=== PATIENT | female | born 1935 | race Caucasian/White ===

== ENCOUNTER 2017-03-20 17:31 | Emergency (ER) | payer MEDICARE, MEDICAID ==
[~2017-03-20] VITALS: Ht 165.1 cm; Wt 86.0 kg
[~2017-03-20 17:31] MED LIST: ALEN1TAB48 PO; APIX5TAB PO; CALC1TAB87 PO; ELASMIS; GLIP5TAB8 PO; HUMALOG SQ; LANTINJ SQ; METF500T PO; METO50TA PO; NITR0.4S SL; OMEP20TA PO
[2017-03-20 17:40] VITALS: BP 184/86; PULSE 80; RESP 20; TEMP 98.5; O2SAT 99
[2017-03-20] MEDS ORDERED: HUMALOG SQ (17:56)
[2017-03-20] MEDS ORDERED: LANTINJ SQ (17:56)
[2017-03-20] MEDS ORDERED: GLIP10TA6 PO (17:56)
[2017-03-20] MEDS ORDERED: CLIN1CAP6 PO (18:36)
--- NOTE | 2017-03-20 18:37 | PD ---
HPI Chief Complaint: Bite or Sting Time Seen by Provider: 18:05 Travel History International Travel<30 days: No Contact w/Intl Traveler<30days: No Traveled to known affect area: No History of Present Illness HPI 81-year-old female presents emergency department for evaluation of dog bite to the left second digit. She reports she startled her sleeping dog and when he awoke he nipped puncturing her left second digit. She has a small puncture wound to that toe. There is no active bleeding. Injury occurred at 9 AM. She reports mild pain at the site. No aggravating or alleviating factors. PFSH Past Medical History Hx Anticoagulant Therapy: Yes Arthritis: Yes Heart Rhythm Problems: Yes Cancer: Yes (LEFT KIDNEY) Cardiac Catheterization: Yes (X 2 STENTS) Cardiovascular Problems: Yes High Cholesterol: Yes Chest Pain: Yes Diabetes: Yes Patient Takes Glucophage: Yes Diminished Hearing: No Gastrointestinal Disorders: Yes GERD: Yes Glaucoma: No Genitourinary: Yes Hepatitis: No Hiatal Hernia: Yes (GERD) Hypertension: Yes Musculoskeletal: Yes Reproductive: Yes Respiratory: Yes Immunizations Current: No Myocardial Infarction: Yes Renal Failure: Yes Thyroid Disease: No Menopausal: Yes : 5 Para: 4 Miscarriage: 1 Past Surgical History Abdominal Surgery: Yes (CHOLECYSTECTOMY) Cholecystectomy: Yes Coronary Stent: Yes (X2 STENTS) Endocrine Surgery: Yes (L KIDNEY [id number] KIDNEY IN "3RD STAGE") Eye Surgery: Yes (DAWIT. CATARACT EXTRACT) Genitourinary Surgery: Yes (LEFT NEPHRECTOMY, BLADDER SUSP. X2) Gynecologic Surgery: Yes (TY) Hysterectomy: Yes Joint Replacement: Yes (DAWIT KNEE) Oral Surgery: Yes (T & A) Pacemaker: No Tonsillectomy: Yes Other Surgery: Yes Social History Alcohol Use: No Tobacco Use: No (QUIT 25 YRS AGO.) Substance Use: No Allergies-Medications (Allergen,Severity, Reaction): Coded Allergies: Cipro (Verified Allergy, Severe, SICK, 03/20/17) Contrast Media (Verified Allergy, Severe, Urinary Freq (Inc/Dec), 03/20/17) Nimbex (Verified Allergy, Severe, Anaphylaxis, 03/20/17) Nonsteroidal Anti-Inflammatory Agts (Unverified Allergy, Severe, HAS RENAL FAILURE, 03/20/17) Penicillin (Verified Allergy, Severe, Anaphylaxis, 03/20/17) HMG-CoA Reductase Inhibitors (Verified Allergy, Intermediate, 03/20/17) Cramps Zofran (Verified Allergy, Mild, Rash, 03/20/17) Uncoded Allergies: mimbrx (Adverse Reaction, Severe, Anaphylaxis, 11/29/16) Reported Meds & Prescriptions Reported Meds & Active Scripts Active Reported Lantus Solostar Pen Inj (Insulin Glargine) 300 Unit/3 Ml Pen 50 Units SQ HS Humalog Inj (Insulin Human Lispro) 1,000 Unit/10 Ml Vial 14 Units SQ TIDAC Glipizide 10 Mg Tab 10 Mg PO BIDAC Take 30 minutes before a meal Calcium 600 with Vitamin D (Calcium Carbonate-Cholecalciferol) 600-400 mg-Unit Tab 1 Tab PO DAILY Eliquis (Apixaban) 5 Mg Tab 5 Mg PO BID Omeprazole 20 Mg Tab 20 Mg PO BID Metformin (Metformin HCl) 500 Mg Tab 1,000 Mg PO BIDPC With meals Metoprolol Tartrate 50 Mg Tab 50 Mg PO BID Review of Systems Except as stated in HPI: all other systems reviewed are Neg General / Constitutional: No: Fever Eyes: No: Visual changes HENT: No: Headaches Cardiovascular: No: Chest Pain or Discomfort Respiratory: No: Shortness of Breath Gastrointestinal: No: Abdominal Pain Physical Exam Narrative GENERAL: Well-nourished, well-developed patient. SKIN: Focused skin assessment warm/dry. 0.5 cm puncture wound to the plantar aspect of left second digit. No active bleeding. Joint penetration unsuspected. HEAD: Normocephalic. EYES: No scleral icterus. No injection or drainage. NECK: Supple, trachea midline. No JVD or lymphadenopathy. CARDIOVASCULAR: Regular rate and rhythm without murmurs, gallops, or rubs. RESPIRATORY: Breath sounds equal bilaterally. No accessory muscle use. GASTROINTESTINAL: Abdomen soft, non-tender, nondistended. MUSCULOSKELETAL: No cyanosis, or edema. Data Data Last Documented VS Vital Signs Date Time Temp Pulse Resp B/P Pulse Ox O2 Delivery O2 Flow Rate FiO2 03/20/17 17:40 98.5 80 20 184/86 99 MDM Medical Decision Making Medical Screen Exam Complete: Yes Emergency Medical Condition: Yes Differential Diagnosis Dog bite, puncture wound, total laceration Narrative Course 81-year-old female with small puncture wound to left second toe caused by dogbite. Dog's immunizations are up-to-date. The puncture wound is no active bleeding and joint penetration is not suspected. The area was extensively cleansed and dressed. Patient we put on antibiotics. Her tetanus status is up- to-date. Advised to follow with her primary care doctor. Return precautions discussed. Patient verbalizes understanding and agrees to plan Diagnosis Primary Impression: Dog bite Qualified Code: W54.0XXA - Dog bite, initial encounter Additional Impression: Puncture wound Referrals: Primary Care Physician Additional Instructions: Cleansed the area daily with soap and water. Covered the area with antibiotic ointment and a dressing. Take the antibiotics as prescribed. Follow-up with her primary care doctor for recheck. Return to the emergency department if he developed new or worsening symptoms. Scripts Clindamycin 300 Mg [id number] Mg PO TID #21 CAP Prov:Ayanna Graham 03/20/17 Disposition: 01 DISCHARGE HOME Condition: Stable Ayanna Graham Mar 20, 2017 18:37
[2017-03-31] MEDS ORDERED: OMEP20TA PO (11:18)
[2017-03-31] MEDS ORDERED: CLOT2CRE VAGINAL ×2 (11:29→11:30)
[2017-05-19] MEDS ORDERED: LIFI1DRO EACH EYE ×3 (10:52→11:16)
[2017-05-19] MEDS ORDERED: AZIT250T3 PO ×2 (11:14→11:16)
[2017-05-19] MEDS ORDERED: BENZ100 PO ×2 (11:14→11:16)
[2017-05-27] MEDS ORDERED: AZIT250T3 PO (11:04)
== END 2017-03-20 18:57 | disposition home or self-care (01) ==
LOC: PHED 17:31
DX: S61.231A Puncture wound without foreign body of left index finger without damage to nail, initial encounter (principal); Y92.009 Unspecified place in unspecified non-institutional (private) residence as the place of occurrence of the external cause; Y93.89 Activity, other specified; W54.0XXA Bitten by dog, initial encounter; I12.9 Hypertensive chronic kidney disease with stage 1 through stage 4 chronic kidney disease, or unspecified chronic kidney disease; E11.9 Type 2 diabetes mellitus without complications; N18.9 Chronic kidney disease, unspecified; E78.00 Pure hypercholesterolemia, unspecified; K21.9 Gastro-esophageal reflux disease without esophagitis; I25.2 Old myocardial infarction; Z90.5 Acquired absence of kidney; Z96.653 Presence of artificial knee joint, bilateral; Z79.4 Long term (current) use of insulin; Z79.01 Long term (current) use of anticoagulants
CPT/HCPCS: 99283

== ENCOUNTER → 2017-06-23 | Outpatient (CLI) | payer MEDICARE ==
[~2017-06-23] MED LIST changes: +ALBUAER3 INH; -ALEN1TAB48 PO; +BENZ100 PO; +CLOT2CRE VAGINAL; -ELASMIS; +GLIP10TA6 PO; -GLIP5TAB8 PO; +LIFI1DRO EACH EYE; -NITR0.4S SL; -OMEP20TA PO; +OMEP20TA93 PO
== END ==
LOC: HRSP 11:57
PROVIDERS: ATTEND Family Medicine
DX: J44.9 Chronic obstructive pulmonary disease, unspecified (principal)
CPT/HCPCS: 94060

== ENCOUNTER 2018-01-02 23:04 | Emergency (ER) | payer MEDICARE, OTHER ==
[~2018-01-02] VITALS: Ht 165.1 cm; Wt 88.3 kg
[~2018-01-02 23:04] MED LIST changes: -ALBUAER3 INH; -CLOT2CRE VAGINAL; +SALM50I INH
[2018-01-02 23:08] VITALS: BP 155/78; PULSE 89; RESP 18; TEMP 97.8; O2SAT 97
--- NOTE | 2018-01-02 23:44 | PD ---
HPI Chief Complaint: OD/ Ingestion Time Seen by Provider: 23:37 Travel History International Travel<30 days: No Contact w/Intl Traveler<30days: No History of Present Illness HPI Patient presents to the emergency department complaining of taking too much of her medication this evening. She thought she had not taken it but she realized she had when she checked her pill bottle. States that this happened approximately 1 hour ago. She took one extra of the following medications: Eliquis, metoprolol, metformin, glipizide. She normally takes metoprolol 50mg BID, metformin 1000mg BID after meals, eliquis 5mg BID, and glipizide 10mg BID before meals. She denies chest pain, hemoptysis, hematuria, but reports chronic dyspnea and chronic dizziness and chronic lightheadedness. No acute complaints. PFSH Past Medical History Hx Anticoagulant Therapy: Yes Arthritis: Yes Heart Rhythm Problems: Yes Cancer: Yes (LEFT KIDNEY) Cardiac Catheterization: Yes (X 2 STENTS) Cardiovascular Problems: Yes High Cholesterol: Yes Chest Pain: Yes Diabetes: Yes Diminished Hearing: No Gastrointestinal Disorders: Yes GERD: Yes Glaucoma: No Genitourinary: Yes Hepatitis: No Hiatal Hernia: Yes (GERD) Hypertension: Yes Musculoskeletal: Yes Reproductive: Yes Respiratory: Yes Immunizations Current: No Myocardial Infarction: Yes Renal Failure: Yes Thyroid Disease: No Menopausal: Yes : 5 Para: 4 Miscarriage: 1 Past Surgical History Abdominal Surgery: Yes (CHOLECYSTECTOMY) Cholecystectomy: Yes Coronary Stent: Yes (X2 STENTS) Endocrine Surgery: Yes (L KIDNEY [id number] KIDNEY IN "3RD STAGE") Eye Surgery: Yes (DAWIT. CATARACT EXTRACT) Genitourinary Surgery: Yes (LEFT NEPHRECTOMY, BLADDER SUSP. X2) Gynecologic Surgery: Yes (TY) Hysterectomy: Yes Joint Replacement: Yes (DAWIT KNEE) Oral Surgery: Yes (T & A) Pacemaker: No Tonsillectomy: Yes Other Surgery: Yes Social History Alcohol Use: No Tobacco Use: No (QUIT 25 YRS AGO.) Substance Use: No Allergies-Medications (Allergen,Severity, Reaction): Coded Allergies: ciprofloxacin (Verified Allergy, Severe, SICK, 01/03/18) cisatracurium (Verified Allergy, Severe, Anaphylaxis, 01/03/18) diatrizoate meglumine (Verified Allergy, Severe, Urinary Freq (Inc/Dec), ) diclofenac (Verified Allergy, Severe, HAS RENAL FAILURE, 01/03/18) etodolac (Verified Allergy, Severe, HAS RENAL FAILURE, 01/03/18) flurbiprofen (Verified Allergy, Severe, HAS RENAL FAILURE, 01/03/18) gadobenic acid (Verified Allergy, Severe, Urinary Freq (Inc/Dec), 01/03/18) gadodiamide (Verified Allergy, Severe, Urinary Freq (Inc/Dec), 01/03/18) gadoteridol (Verified Allergy, Severe, Urinary Freq (Inc/Dec), 01/03/18) ibuprofen (Verified Allergy, Severe, HAS RENAL FAILURE, 01/03/18) indomethacin (Verified Allergy, Severe, HAS RENAL FAILURE, 01/03/18) iodixanol (Verified Allergy, Severe, Urinary Freq (Inc/Dec), 01/03/18) iohexol (Verified Allergy, Severe, Urinary Freq (Inc/Dec), 01/03/18) ketoprofen (Verified Allergy, Severe, HAS RENAL FAILURE, 01/03/18) ketorolac (Verified Allergy, Severe, HAS RENAL FAILURE, 01/03/18) naproxen (Verified Allergy, Severe, HAS RENAL FAILURE, 01/03/18) oxaprozin (Verified Allergy, Severe, HAS RENAL FAILURE, 01/03/18) penicillin G (Verified Allergy, Severe, Anaphylaxis, 01/03/18) amlodipine (Verified Allergy, Intermediate, Muscles cramps, 01/03/18) Cramps atorvastatin (Verified Allergy, Intermediate, Muscle cramps, 01/03/18) Cramps pravastatin (Verified Allergy, Intermediate, Muschle cramps, 01/03/18) Cramps simvastatin (Verified Allergy, Intermediate, Muscles Cramps, 01/03/18) Cramps ondansetron (Verified Allergy, Mild, Rash, 01/03/18) Uncoded Allergies: mimbrx (Adverse Reaction, Severe, Anaphylaxis, 11/29/16) Reported Meds & Prescriptions Reported Meds & Active Scripts Active Serevent Diskus Inh (Salmeterol Xinafoate) 50 Mcg/Act Aero 50 Mcg INH BID Tessalon Perles (Benzonatate) 100 Mg Cap 200 Mg PO TID PRN Xiidra Opth Drops (Lifitegrast Opth Drops) 5% Drops 1 Drop EACH EYE BID Omeprazole 20 Mg Tab 20 Mg PO BID Reported Duoneb (Ipratropium-Albuterol Neb) 0.5-2.5 Mg/3 Ml Neb 1 Nebule INH Q6HR NEB Lantus Solostar Pen Inj (Insulin Glargine) 300 Unit/3 Ml Pen 50 Units SQ HS Humalog Inj (Insulin Human Lispro) 1,000 Unit/10 Ml Vial 14 Units SQ TIDAC Glipizide 10 Mg Tab 10 Mg PO BIDAC Take 30 minutes before a meal Calcium 600 with Vitamin D (Calcium Carbonate-Cholecalciferol) 600-400 mg-Unit Tab 1 Tab PO DAILY Eliquis (Apixaban) 5 Mg Tab 5 Mg PO BID Metformin (Metformin HCl) 500 Mg Tab 1,000 Mg PO BIDPC With meals Metoprolol Tartrate 50 Mg Tab 50 Mg PO BID Review of Systems Except as stated in HPI: all other systems reviewed are Neg Physical Exam Narrative GENERAL: No acute distress. SKIN: Focused skin assessment warm/dry. HEAD: Atraumatic. Normocephalic. EYES: EOMI bilat. No scleral icterus. No injection or drainage. ENT: No nasal bleeding or discharge. Mucous membranes pink and moist. NECK: Trachea midline. No JVD. CARDIOVASCULAR: Regular rate and rhythm. No murmur appreciated. RESPIRATORY: No accessory muscle use. Clear to auscultation. Breath sounds equal bilaterally. GASTROINTESTINAL: Abdomen soft, non-tender, nondistended. MUSCULOSKELETAL: No obvious deformities. No clubbing. No cyanosis. No edema. NEUROLOGICAL: Awake and alert. No obvious cranial nerve deficits. Motor grossly within normal limits. Normal speech. PSYCHIATRIC: Appropriate mood and affect; insight and judgment normal. Data Data Last Documented VS Vital Signs Date Time Temp Pulse Resp B/P (MAP) Pulse Ox O2 Delivery O2 Flow Rate FiO2 01/03/18 01:18 83 16 171/83 (112) 96 Room Air 01/02/18 23:08 97.8 Orders Orders Electrocardiogram (01/02/18 23:37) Complete Blood Count With Diff (01/02/18 23:37) Comprehensive Metabolic Panel (01/02/18 23:37) Prothrombin Time / Inr (Pt) (01/02/18 23:37) Act Partial Throm Time (Ptt) (01/02/18 23:37) Urinalysis - C+S If Indicated (01/02/18 23:37) Iv Access Insert/Monitor (01/02/18 23:37) Ecg Monitoring (01/02/18 23:37) Oximetry (01/02/18 23:37) Sodium Chloride 0.9% Flush (Ns Flush) (01/02/18 23:45) Drug Screen, Random Urine (01/02/18 23:37) Salicylates (Aspirin) (01/02/18 23:37) Tylenol (Acetaminophen) (01/02/18 23:37) Call Poison Control (01/02/18 23:37) Magnesium (Mg) (01/03/18 00:02) Ckmb (Isoenzyme) Profile (01/03/18 00:04) Troponin I (01/03/18 00:04) Creatine Kinase (Cpk) (01/03/18 00:04) Electrocardiogram (01/03/18 03:00) Comprehensive Metabolic Panel (01/03/18 03:00) Creatine Kinase (Cpk) (01/03/18 03:00) Ckmb (Isoenzyme) Profile (01/03/18 03:00) Troponin I (01/03/18 03:00) Magnesium (Mg) (01/03/18 03:00) Labs Laboratory Tests Test 01/02/18 00:07 01/02/18 23:43 01/03/18 00:02 Urine Color YELLOW Urine Turbidity CLEAR Urine pH 5.5 Urine Specific [place] 1.010 Urine Protein NEG mg/dL Urine Glucose (UA) NEG mg/dL Urine Ketones NEG mg/dL Urine Occult Blood NEG Urine Nitrite NEG Urine Bilirubin NEG Urine Urobilinogen 0.2 MG/DL Urine Leukocyte Esterase NEG Urine RBC 0-3 /hpf Urine WBC 0-2 /hpf Urine Squamous Epithelial Cells 0-5 /hpf Microscopic Urinalysis Comment CULT NOT INDICATED Urine Opiates Screen NEG Urine Barbiturates Screen NEG Urine Amphetamines Screen NEG Urine Benzodiazepines Screen NEG Urine Cocaine Screen NEG Urine Cannabinoids Screen NEG White Blood Count 9.5 TH/MM3 Red Blood Count 4.74 MIL/MM3 Hemoglobin 11.7 GM/DL Hematocrit 35.4 % Mean Corpuscular Volume 74.7 FL Mean Corpuscular Hemoglobin 24.8 PG Mean Corpuscular Hemoglobin Concent 33.2 % Red Cell Distribution Width 15.8 % Platelet Count 259 TH/MM3 Mean Platelet Volume 7.3 FL Neutrophils (%) (Auto) 58.2 % Lymphocytes (%) (Auto) 32.7 % Monocytes (%) (Auto) 6.1 % Eosinophils (%) (Auto) 2.2 % Basophils (%) (Auto) 0.8 % Neutrophils # (Auto) 5.5 TH/MM3 Lymphocytes # (Auto) 3.1 TH/MM3 Monocytes # (Auto) 0.6 TH/MM3 Eosinophils # (Auto) 0.2 TH/MM3 Basophils # (Auto) 0.1 TH/MM3 CBC Comment AUTO DIFF Differential Comment AUTO DIFF CONFIRMED Ovalocytes 1+ Prothrombin Time 9.6 SEC Prothromb Time International Ratio 0.9 RATIO Activated Partial Thromboplast Time 24.3 SEC Blood Urea Nitrogen 15 MG/DL Creatinine 1.10 MG/DL Random Glucose 246 MG/DL Total Protein 7.1 GM/DL Albumin 3.4 GM/DL Calcium Level 9.0 MG/DL Alkaline Phosphatase 90 U/L Aspartate Amino Transf (AST/SGOT) 45 U/L Alanine Aminotransferase (ALT/SGPT) 56 U/L Total Bilirubin 0.3 MG/DL Sodium Level 138 MEQ/L Potassium Level 4.6 MEQ/L Chloride Level 108 MEQ/L Carbon Dioxide Level 20.2 MEQ/L Anion Gap 10 MEQ/L Estimat Glomerular Filtration Rate 48 ML/MIN Magnesium Level 1.6 MG/DL Total Creatine Kinase 78 U/L Troponin I LESS THAN 0.02 NG/ML MDM Medical Decision Making Medical Screen Exam Complete: Yes Emergency Medical Condition: Yes Interpretation(s) ECG: Rate 83, sinus rhythm, T-wave inversion in leads V1 through V6 (prior EKGs in 2010, without these abnormalities) Labs: CBC and coags within normal limits; glucose, creatinine, AST, ALT increased but creatinine decreased from prior and AST, ALT increased from prior Differential Diagnosis Inadvertent overdose Narrative Course Patient presents to the emergency department after taking the extra dose of her medication this evening. She is afebrile, slightly hypertensive at 155/78, remaining vital signs stable. Benign physical exam patient placed on personnel monitor, IV access obtained, labs sent, EKG ordered, poison control consulted. Upon initial arrival, accucheck was done-233. After speaking with Poison Control repeat was 281, 30 minutes later blood sugar was 264 (BP 171/83). 0103: Patient signed out to Dr. Christy for final disposition, salicylate and acetaminophen pending. Repeat ECG and labs to be drawn at 3:00. Physician Communication Physician Communication Nurse spoke to poison control. They advised metabolic panel repeat in 2-3 hours with magnesium. Bedside glucose every 30 minutes to 1 hour until blood sugar levels off then repeat every 2 hours. If glucose is decreasing advised to give p.o./food first. Repeat EKG in 2-3 hours. If blood pressure decreases advised to give IV fluids first. Also advised to monitor the patient for 12 hours. 0101: Attempted to admit patient to hospitalist for observation; however, there was a concern that the patient would need to be admitted to the unit for frequent Accu-Chek, when a unit bed may not actually be needed. Advised to get repeat chemistry in 2-3 hours per Posion Control and repeat Accu-Cheks and call her back with results to assess where the patient would be best suitable for observation. Elsa Hopper MD January 02, 2018 23:44
[2018-01-02] MEDS ORDERED: SODIUM CHLORIDE 0.9% FLUSH 10 ML FLUSH IVF PRN (23:45)
[2018-01-02 23:48] VITALS: RESP 18; O2SAT 93
[2018-01-02 23:52] LABS: AUTOMATED NEUTROPHIL # 5.5 TH/MM3 (1.8-7.7); BASOPHIL # 0.1 TH/MM3 (0-0.2); BASOPHIL % 0.8 % (0.0-2.0); EOSINOPHIL # 0.2 TH/MM3 (0-0.4); EOSINOPHIL % 2.2 % (0.0-4.0); HEMATOCRIT 35.4 % (35.0-46.0); HEMOGLOBIN 11.7 GM/DL (11.6-15.3); LYMPH % 32.7 % (9.0-44.0); LYMPHOCYTE # 3.1 TH/MM3 (1.0-4.8); MEAN CELL VOLUME 74.7 FL (80.0-100.0); MEAN CORPUSCULAR HEMOGLOBIN 24.8 PG (27.0-34.0); MEAN CORPUSCULAR HGB CONC 33.2 % (32.0-36.0); MEAN PLATELET VOLUME 7.3 FL (7.0-11.0); MONO % 6.1 % (0.0-8.0); MONOCYTE # 0.6 TH/MM3 (0-0.9); NEUT % 58.2 % (16.0-70.0); PLATELET COUNT 259 TH/MM3 (150-450); RED BLOOD COUNT 4.74 MIL/MM3 (4.00-5.30); RED CELL DISTRIBUTION WIDTH 15.8 % (11.6-17.2); WHITE BLOOD COUNT 9.5 TH/MM3 (4.0-11.0)
[2018-01-03] VITALS (10 sets, daily range): BP systolic 151–173; BP diastolic 64–92; PULSE 70–87; RESP 16–17; O2SAT 96–98
[2018-01-03 00:06] LABS: CHLORIDE 108 MEQ/L (98-107); SODIUM (NA) 138 MEQ/L (136-145)
[2018-01-03 00:09] LABS: ALBUMIN 3.4 GM/DL (3.4-5.0); BICARBONATE 20.2 MEQ/L (21.0-32.0); BLOOD UREA NITROGEN 15 MG/DL (7-18); GLUCOSE,RANDOM 246 MG/DL (74-106)
[2018-01-03 00:11] LABS: INTERNATIONAL NORMALIZED RATIO 0.9 RATIO; PROTHROMBIN TIME - PATIENT 9.6 SEC (9.8-11.6)
[2018-01-03 00:12] LABS: ALT (GPT) 56 U/L (10-53); AST (GOT) 45 U/L (15-37); GLOMERULAR FILTRATION RATE 48 ML/MIN (>89)
[2018-01-03 00:13] LABS: TOTAL BILIRUBIN ADULT 0.3 MG/DL (0.2-1.0); TOTAL PROTEIN 7.1 GM/DL (6.4-8.2)
[2018-01-03 00:15] LABS: ALKALINE PHOSPHATASE 90 U/L (45-117)
[2018-01-03 00:22] LABS: BILIRUBIN, URINE NEG (NEG); BLOOD, URINE NEG (NEG); GLUCOSE,URINE NEG (NEG); KETONE, URINE NEG (NEG); NITRITE,URINE NEG (NEG); PH, URINE 5.5 (5.0-8.5); URINE COLOR YELLOW (YELLW/STRAW); URINE LEUKOCYTE ESTERASE NEG (NEG)
[2018-01-03 00:27] LABS: TROPONIN I LESS THAN 0.02 NG/ML (0.02-0.05)
[2018-01-03 00:32] LABS: RBC, URINE 0-3 /hpf (0-3); WBC, URINE 0-2 /hpf (0-5)
[2018-01-03 00:33] LABS: SQUAMOUS EPITHELIAL CELL URINE 0-5 /hpf (0-5)
[2018-01-03 00:47] LABS: OVALOCYTES 1+ (NORMAL)
[2018-01-03] MEDS ORDERED: IPRASOL INH (00:56)
[2018-01-03 01:49] LABS: ACETAMINOPHEN LESS THAN 2.0 MCG/ML (10.0-30.0)
--- NOTE | 2018-01-03 02:33 | PD ---
Physical Exam Date Seen by Provider: January 03, 2018 Time Seen by Provider: 02:31 Narrative Accepted transfer of care from Dr. Hopper Data Data Last Documented VS Vital Signs Date Time Temp Pulse Resp B/P (MAP) Pulse Ox O2 Delivery O2 Flow Rate FiO2 01/03/18 03:58 73 16 158/64 (95) 98 Room Air 01/02/18 23:08 97.8 Orders Orders Electrocardiogram (01/02/18 23:37) Complete Blood Count With Diff (01/02/18 23:37) Comprehensive Metabolic Panel (01/02/18 23:37) Prothrombin Time / Inr (Pt) (01/02/18 23:37) Act Partial Throm Time (Ptt) (01/02/18:37) Urinalysis - C+S If Indicated (01/02/18:37) Iv Access Insert/Monitor (01/02/18 23:37) Ecg Monitoring (01/02/18 23:37) Oximetry (01/02/18 23:37) Sodium Chloride 0.9% Flush (Ns Flush) (01/02/18 23:45) Drug Screen, Random Urine (01/02/18 23:37) Salicylates (Aspirin) (01/02/18 23:37) Tylenol (Acetaminophen) (01/02/18 23:37) Call Poison Control (01/02/18 23:37) Magnesium (Mg) (01/03/18 00:02) Ckmb (Isoenzyme) Profile (01/03/18 00:04) Troponin I (01/03/18 00:04) Creatine Kinase (Cpk) (01/03/18 00:04) Electrocardiogram (01/03/18 03:00) Comprehensive Metabolic Panel (01/03/18 03:00) Creatine Kinase (Cpk) (01/03/18 03:00) Ckmb (Isoenzyme) Profile (01/03/18 03:00) Troponin I (01/03/18 03:00) Magnesium (Mg) (01/03/18 03:00) Labs Laboratory Tests Test 01/02/18 00:07 01/02/18 23:43 01/03/18 00:02 01/03/18 02:57 Urine Color YELLOW Urine Turbidity CLEAR Urine pH 5.5 Urine Specific [place] 1.010 Urine Protein NEG mg/dL Urine Glucose (UA) NEG mg/dL Urine Ketones NEG mg/dL Urine Occult Blood NEG Urine Nitrite NEG Urine Bilirubin NEG Urine Urobilinogen 0.2 MG/DL Urine Leukocyte Esterase NEG Urine RBC 0-3 /hpf Urine WBC 0-2 /hpf Urine Squamous Epithelial Cells 0-5 /hpf Microscopic Urinalysis Comment CULT NOT INDICATED Urine Opiates Screen NEG Urine Barbiturates Screen NEG Urine Amphetamines Screen NEG Urine Benzodiazepines Screen NEG Urine Cocaine Screen NEG Urine Cannabinoids Screen NEG White Blood Count 9.5 TH/MM3 Red Blood Count 4.74 MIL/MM3 Hemoglobin 11.7 GM/DL Hematocrit 35.4 % Mean Corpuscular Volume 74.7 FL Mean Corpuscular Hemoglobin 24.8 PG Mean Corpuscular Hemoglobin Concent 33.2 % Red Cell Distribution Width 15.8 % Platelet Count 259 TH/MM3 Mean Platelet Volume 7.3 FL Neutrophils (%) (Auto) 58.2 % Lymphocytes (%) (Auto) 32.7 % Monocytes (%) (Auto) 6.1 % Eosinophils (%) (Auto) 2.2 % Basophils (%) (Auto) 0.8 % Neutrophils # (Auto) 5.5 TH/MM3 Lymphocytes # (Auto) 3.1 TH/MM3 Monocytes # (Auto) 0.6 TH/MM3 Eosinophils # (Auto) 0.2 TH/MM3 Basophils # (Auto) 0.1 TH/MM3 CBC Comment AUTO DIFF Differential Comment AUTO DIFF CONFIRMED Ovalocytes 1+ Prothrombin Time 9.6 SEC Prothromb Time International Ratio 0.9 RATIO Activated Partial Thromboplast Time 24.3 SEC Blood Urea Nitrogen 15 MG/DL 18 MG/DL Creatinine 1.10 MG/DL 1.00 MG/DL Random Glucose 246 MG/DL 246 MG/DL Total Protein 7.1 GM/DL 6.5 GM/DL Albumin 3.4 GM/DL 3.0 GM/DL Calcium Level 9.0 MG/DL 8.8 MG/DL Alkaline Phosphatase 90 U/L 79 U/L Aspartate Amino Transf (AST/SGOT) 45 U/L 32 U/L Alanine Aminotransferase (ALT/SGPT) 56 U/L 46 U/L Total Bilirubin 0.3 MG/DL 0.3 MG/DL Sodium Level 138 MEQ/L 137 MEQ/L Potassium Level 4.6 MEQ/L 4.7 MEQ/L Chloride Level 108 MEQ/L 108 MEQ/L Carbon Dioxide Level 20.2 MEQ/L 20.5 MEQ/L Anion Gap 10 MEQ/L 9 MEQ/L Estimat Glomerular Filtration Rate 48 ML/MIN 53 ML/MIN Salicylates Level LESS THAN 1.7 MG/DL Acetaminophen Level LESS THAN 2.0 MCG/ML Magnesium Level 1.6 MG/DL 1.7 MG/DL Total Creatine Kinase 78 U/L 67 U/L Troponin I LESS THAN 0.02 NG/ML LESS THAN 0.02 NG/ML [facility] Medical Record Reviewed: Yes Supervised Visit with CHRISTIE: No Differential Diagnosis Accepted in transfer of care from Dr. Hopper please refer to her dictation Narrative Course Accepted in transfer of care from Dr. Hopper for follow-up of patient's monitoring per poison control recommendation after accidental ingestion of multiple maintenance medications. Patient is currently having bedside glucose checked every 30 minutes with plan to decrease to bedside glucose checks every hour as well as cardiac monitoring for rhythm disturbance and blood pressure management continuously and plan for repeat chemistries and EKG at 3 AM. Recommendation per poison control was 12 hours of observation post patient's ingestion of multiple maintenance medications. Patient has spoken with the on- call medicine doctor regarding observation admission which was declined with request to be re-contacted after 3 AM labs and EKGs results. EKG sinus rhythm anteroseptal ST-T wave changes no acute ST elevation normal axis and intervals QT is 363 QTc is 386 not prolonged; lab values are essentially unchanged from prior acetaminophen and salicylate levels are not elevated troponin I is less than 0.02; patient feels well voicing no concerns or complaints. Vital signs are remaining stable. Lab values are remaining within acceptable range. Karissa Christy MD January 03, 2018 02:33
[2018-01-03 03:11] LABS: CHLORIDE 108 MEQ/L (98-107); SODIUM (NA) 137 MEQ/L (136-145)
[2018-01-03 03:14] LABS: CALCIUM 8.8 MG/DL (8.5-10.1)
[2018-01-03 03:15] LABS: BICARBONATE 20.5 MEQ/L (21.0-32.0); BLOOD UREA NITROGEN 18 MG/DL (7-18); GLUCOSE,RANDOM 246 MG/DL (74-106); MAGNESIUM 1.7 MG/DL (1.5-2.5)
[2018-01-03 03:18] LABS: ALT (GPT) 46 U/L (10-53); AST (GOT) 32 U/L (15-37); GLOMERULAR FILTRATION RATE 53 ML/MIN (>89)
[2018-01-03 03:20] LABS: TOTAL BILIRUBIN ADULT 0.3 MG/DL (0.2-1.0); TOTAL PROTEIN 6.5 GM/DL (6.4-8.2)
[2018-01-03 03:21] LABS: ALKALINE PHOSPHATASE 79 U/L (45-117)
[2018-01-03 03:23] LABS: TROPONIN I LESS THAN 0.02 NG/ML (0.02-0.05)
--- NOTE | 2018-01-03 06:00 | PD ---
Physical Exam Date Seen by Provider: January 03, 2018 Time Seen by Provider: 05:56 Narrative Please refer to my previous dictation GENERAL: Well-developed well-nourished female no acute distress no respiratory distress SKIN: Warm and dry. HEAD: Normocephalic. EYES: No scleral icterus. No injection or drainage. NECK: Supple, trachea midline. No JVD or lymphadenopathy. CARDIOVASCULAR: Regular rate and rhythm without murmurs, gallops, or rubs. RESPIRATORY: Breath sounds equal bilaterally. No accessory muscle use. GASTROINTESTINAL: Abdomen soft, non-tender, nondistended. MUSCULOSKELETAL: No cyanosis, or edema. BACK: Nontender without obvious deformity. No CVA tenderness. Data Data Last Documented VS Vital Signs Date Time Temp Pulse Resp B/P (MAP) Pulse Ox O2 Delivery O2 Flow Rate FiO2 01/03/18 07:22 97 Room Air 01/03/18 06:34 76 16 151/80 (103) 01/02/18 23:08 97.8 Orders Orders Electrocardiogram (01/02/18 23:37) Complete Blood Count With Diff (01/02/18 23:37) Comprehensive Metabolic Panel (01/02/18 23:37) Prothrombin Time / Inr (Pt) (01/02/18 23:37) Act Partial Throm Time (Ptt) (01/02/18 23:37) Urinalysis - C+S If Indicated (01/02/18 23:37) Iv Access Insert/Monitor (01/02/18 23:37) Ecg Monitoring (01/02/18 23:37) Oximetry (01/02/18 23:37) Sodium Chloride 0.9% Flush (Ns Flush) (01/02/18 23:45) Drug Screen, Random Urine (01/02/18 23:37) Salicylates (Aspirin) (01/02/18 23:37) Tylenol (Acetaminophen) (01/02/18 23:37) Call Poison Control (01/02/18 23:37) Magnesium (Mg) (01/03/18 00:02) Ckmb (Isoenzyme) Profile (01/03/18 00:04) Troponin I (01/03/18 00:04) Creatine Kinase (Cpk) (01/03/18 00:04) Electrocardiogram (01/03/18 03:00) Comprehensive Metabolic Panel (01/03/18 03:00) Creatine Kinase (Cpk) (01/03/18 03:00) Ckmb (Isoenzyme) Profile (01/03/18 03:00) Troponin I (01/03/18 03:00) Magnesium (Mg) (01/03/18 03:00) Electrocardiogram (01/03/18 ) Troponin I (01/03/18 06:22) Basic Metabolic Panel (Bmp) (01/03/18 06:22) Magnesium (Mg) (01/03/18 06:22) Labs Laboratory Tests Test 01/02/18 00:07 01/02/18 23:43 01/03/18 00:02 01/03/18 02:57 Urine Color YELLOW Urine Turbidity CLEAR Urine pH 5.5 Urine Specific [place] 1.010 Urine Protein NEG mg/dL Urine Glucose (UA) NEG mg/dL Urine Ketones NEG mg/dL Urine Occult Blood NEG Urine Nitrite NEG Urine Bilirubin NEG Urine Urobilinogen 0.2 MG/DL Urine Leukocyte Esterase NEG Urine RBC 0-3 /hpf Urine WBC 0-2 /hpf Urine Squamous Epithelial Cells 0-5 /hpf Microscopic Urinalysis Comment CULT NOT INDICATED Urine Opiates Screen NEG Urine Barbiturates Screen NEG Urine Amphetamines Screen NEG Urine Benzodiazepines Screen NEG Urine Cocaine Screen NEG Urine Cannabinoids Screen NEG White Blood Count 9.5 TH/MM3 Red Blood Count 4.74 MIL/MM3 Hemoglobin 11.7 GM/DL Hematocrit 35.4 % Mean Corpuscular Volume 74.7 FL Mean Corpuscular Hemoglobin 24.8 PG Mean Corpuscular Hemoglobin Concent 33.2 % Red Cell Distribution Width 15.8 % Platelet Count 259 TH/MM3 Mean Platelet Volume 7.3 FL Neutrophils (%) (Auto) 58.2 % Lymphocytes (%) (Auto) 32.7 % Monocytes (%) (Auto) 6.1 % Eosinophils (%) (Auto) 2.2 % Basophils (%) (Auto) 0.8 % Neutrophils # (Auto) 5.5 TH/MM3 Lymphocytes # (Auto) 3.1 TH/MM3 Monocytes # (Auto) 0.6 TH/MM3 Eosinophils # (Auto) 0.2 TH/MM3 Basophils # (Auto) 0.1 TH/MM3 CBC Comment AUTO DIFF Differential Comment AUTO DIFF CONFIRMED Ovalocytes 1+ Prothrombin Time 9.6 SEC Prothromb Time International Ratio 0.9 RATIO Activated Partial Thromboplast Time 24.3 SEC Blood Urea Nitrogen 15 MG/DL 18 MG/DL Creatinine 1.10 MG/DL 1.00 MG/DL Random Glucose 246 MG/DL 246 MG/DL Total Protein 7.1 GM/DL 6.5 GM/DL Albumin 3.4 GM/DL 3.0 GM/DL Calcium Level 9.0 MG/DL 8.8 MG/DL Alkaline Phosphatase 90 U/L 79 U/L Aspartate Amino Transf (AST/SGOT) 45 U/L 32 U/L Alanine Aminotransferase (ALT/SGPT) 56 U/L 46 U/L Total Bilirubin 0.3 MG/DL 0.3 MG/DL Sodium Level 138 MEQ/L 137 MEQ/L Potassium Level 4.6 MEQ/L 4.7 MEQ/L Chloride Level 108 MEQ/L 108 MEQ/L Carbon Dioxide Level 20.2 MEQ/L 20.5 MEQ/L Anion Gap 10 MEQ/L 9 MEQ/L Estimat Glomerular Filtration Rate 48 ML/MIN 53 ML/MIN Salicylates Level LESS THAN 1.7 MG/DL Acetaminophen Level LESS THAN 2.0 MCG/ML Magnesium Level 1.6 MG/DL 1.7 MG/DL Total Creatine Kinase 78 U/L 67 U/L Troponin I LESS THAN 0.02 NG/ML LESS THAN 0.02 NG/ML Test 01/03/18 06:27 Blood Urea Nitrogen 17 MG/DL Creatinine 0.98 MG/DL Random Glucose 211 MG/DL Calcium Level 8.9 MG/DL Magnesium Level 1.6 MG/DL Sodium Level 139 MEQ/L Potassium Level 4.4 MEQ/L Chloride Level 108 MEQ/L Carbon Dioxide Level 21.6 MEQ/L Anion Gap 9 MEQ/L Estimat Glomerular Filtration Rate 55 ML/MIN Troponin I LESS THAN 0.02 NG/ML [facility] Medical Record Reviewed: Yes Supervised Visit with CHRISTIE: No Interpretation(s) UDS: negative acetaminophen:< 2, not elevated salicylate: <1.7 not elevated ua: wnl CBC & BMP Diagram 01/02/18 23:43 Total Protein 7.1, Albumin 3.4, Calcium Level 9.0, Alkaline Phosphatase 90, Aspartate Amino Transf (AST/SGOT) 45 H, Alanine Aminotransferase (ALT/SGPT) 56 H , Total Bilirubin 0.3 01/03/18 02:57 Total Protein 6.5 #, Albumin 3.0 L, Calcium Level 8.8, Alkaline Phosphatase 79, Aspartate Amino Transf (AST/SGOT) 32, Alanine Aminotransferase (ALT/SGPT) 46, Total Bilirubin 0.3, Magnesium Level 1.7 Vital Signs Date Time Temp Pulse Resp B/P (MAP) Pulse Ox O2 Delivery O2 Flow Rate FiO2 01/03/18 05:29 79 16 153/77 (102) 96 Room Air 01/03/18 03:58 73 16 158/64 (95) 98 Room Air 01/03/18 02:58 74 16 165/72 (103) 96 Room Air 01/03/18 01:50 87 16 173/92 (119) 96 Room Air 01/03/18 01:18 83 16 171/83 (112) 96 Room Air 01/03/18 00:44 84 16 165/85 (111) 98 Room Air 01/02/18 23:48 Room Air 01/02/18 23:48 18 93 Room Air 01/02/18 23:08 97.8 89 18 155/78 (103) 97 EKG midnight sinus rhythm rate 83 nonspecific T-wave abnormality with inverted T waves in V1 through V6 no acute ST elevation or ST segment depression EKG 4 a.m. sinus rhythm rate [address] elevation or ST segment depression non-specific inverted T waves V1 through V5 Troponin I at 23:43 PM less than 0.02; troponin I at 2:57 AM less than 0.02 EKG 6:30 AM sinus rhythm rate 69 T-wave inversion again noted no acute ST segment elevation or ST segment depression patient is asymptomatic. Differential Diagnosis Please refer to my previous dictate Narrative Course Please refer to my previous dictation At 06:00 patient is asymptomatic resting comfortably lab values are stable; random glucose --203, blood pressure 166/86 heart rate 73 room air O2 saturation 98% respiratory rate 16 and nonlabored repeat EKG is sinus rhythm rate 69 continues to have T-wave inversion moderate abnormality anterolaterally with no acute ST elevation or depression noted. Repeat troponin I pending. [Past medical history significant for chronic kidney disease CAD dyslipidemia peripheral vascular disease with claudication chronic low back pain goiter hypertension dyslipidemia aortic calcifications TIA previous nephrectomy angioplasty bilateral knee replacement and aortic valve replacement] Troponin I: Less than 0.02; basic metabolic panel is in normal range magnesium 1.6; patient feels well voicing no concerns or complaints Discussed with patient will adjust her metoprolol reports a 5 mg twice daily will resume this dosing metformin will resume regular dosing glipizide 10 will hold morning dose and resume at evening dose and Eliquis will adjust to taking at later time today with corresponding evening dose at later time. 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 Diagnosis Primary Impression: Drug overdose, multiple drugs Qualified Codes: T50.901A - Poisoning by unspecified drugs, medicaments and biological substances, accidental (unintentional), initial encounter Referrals: Primary Care Physician 3 days Patient Instructions: General Instructions Additional Instruction: Increase fluid hydration Adjust medication as discussed and hold morning dose of glipizide Disposition: DISCHARGE HOME Condition: Stable Karissa Christy MD January 03, 2018 06:00
[2018-01-03 07:11] LABS: CHLORIDE 108 MEQ/L (98-107); SODIUM (NA) 139 MEQ/L (136-145)
[2018-01-03 07:14] LABS: CALCIUM 8.9 MG/DL (8.5-10.1)
[2018-01-03 07:15] LABS: BICARBONATE 21.6 MEQ/L (21.0-32.0); BLOOD UREA NITROGEN 17 MG/DL (7-18); GLUCOSE,RANDOM 211 MG/DL (74-106); MAGNESIUM 1.6 MG/DL (1.5-2.5)
[2018-01-03 07:18] LABS: CREATININE 0.98 MG/DL (0.50-1.00); GLOMERULAR FILTRATION RATE 55 ML/MIN (>89)
[2018-01-03 07:23] LABS: TROPONIN I LESS THAN 0.02 NG/ML (0.02-0.05)
--- NOTE | 2018-01-03 15:08 | EKG ---
Date Performed: 01/03/2018 Time Performed: 00:01:27 PTAGE: 82 years EKG: Sinus rhythm NONSPECIFIC T-WAVE ABNORMALITY BORDERLINE ECG Compared to PREVIOUS TRACING , axis is no longer leftward. R-wave progression has improved across the precordium. PREVIOUS TRACIN01/05/2011 23.02 DOCTOR: Edmund Torres Interpretating Date/Time 01/03/2018 15:07:01
--- NOTE | 2018-01-03 15:09 | EKG ---
Date Performed: 01/03/2018 Time Performed: 06:38:47 PTAGE: 82 years EKG: Sinus rhythm MODERATE T-WAVE ABNORMALITY, CONSIDER ANTEROLATERAL ISCHEMIA ABNORMAL ECG WARNING: DATA QUALITY MAY AFFECT INTERPRETATION Compared to PREVIOUS TRACING , T-waves somehwat further inverted anterolaterally. Clinical correlatio n is recommended. PREVIOUS TRACIN01/03/2018 04.02 DOCTOR: Edmund Torres Interpretating Date/Time 01/03/2018 15:08:49
--- NOTE | 2018-01-03 15:09 | EKG ---
Date Performed: 01/03/2018 Time Performed: 04:02:04 PTAGE: 82 years EKG: Sinus rhythm DIFFUSE NONSPECIFIC ST-T CHANGE ABNORMAL ECG Compared to PREVIOUS TRACING , T-waves are somewhat more inverted inferiorly. Clinical correlation is recommended. PREVIOUS TRACIN01/03/2018 00.01 DOCTOR: Edmund Torres Interpretating Date/Time 01/03/2018 15:08:17
== END 2018-01-03 08:03 | disposition home or self-care (01) ==
LOC: PHED 23:04
DX: T44.7X1A Poisoning by beta-adrenoreceptor antagonists, accidental (unintentional), initial encounter (principal); T38.3X1A Poisoning by insulin and oral hypoglycemic [antidiabetic] drugs, accidental (unintentional), initial encounter; T50.991A Poisoning by other drugs, medicaments and biological substances, accidental (unintentional), initial encounter; R94.31 Abnormal electrocardiogram [ECG] [EKG]; E11.9 Type 2 diabetes mellitus without complications; E78.00 Pure hypercholesterolemia, unspecified; I10 Essential (primary) hypertension; K21.9 Gastro-esophageal reflux disease without esophagitis; Z79.01 Long term (current) use of anticoagulants
CPT/HCPCS: 80048; 80053; 80307; 81001; 82550; 83735; 84484; 85025; 85610; 85730; 93005; 99284